=== PATIENT | female | born 1945 | race Caucasian/White ===

== ENCOUNTER 2018-05-12 12:21 | Inpatient (IN) | payer OTHER ==
[2018-05-12 15:43] VITALS: BMI 21.9
--- NOTE | 2018-05-12 19:24 | HP ---
Admission ROS [facility] - [facility] Chief Complaint: Seeking admission to Rehab Allergies/Adverse Reactions: Allergies Allergy/AdvReac Type Severity Reaction Status Date / Time No Known Allergies Allergy Verified 05/12/18 16:33 History of Present Illness: 72 years old female with a long history of alcohol dependence is seeking admission to Rehab. Patient has been in previous Rehab. She has medical history of depression, anxiety and GERD. She denies suicidal ideation at this time Exam Limitations: No Limitations - Ebola screening Have you traveled outside of the country in the last 21 days: No Have you had contact with anyone from an Ebola affected area: No Have you been sick,other than usual withdrawal symptoms: No Do you have a fever: No - Review of Systems Constitutional: No Symptoms Reported EENT: reports: Hearing Loss (left ear) Respiratory: reports: No Symptoms reported Cardiac: reports: No Symptoms Reported GI: reports: No Symptoms Reported : reports: No Symptoms Reported Musculoskeletal: reports: No Symptoms Reported, Other (left rib cage pain) Integumentary: reports: No Symptoms Reported Neuro: reports: No Symptoms reported Endocrine: reports: No Symptoms Reported Hematology: reports: No Symptoms Reported Psychiatric: reports: No Sypmtoms Reported, Orientated x3 Other Systems: Reviewed and Negative Patient History - Patient Medical History Hx Anemia: No Hx Asthma: No Hx Chronic Obstructive Pulmonary Disease (COPD): No Hx Cancer: No Hx Cardiac Disorders: No Hx Congestive Heart Failure: No Hx Hypertension: No Hx Hypercholesterolemia: No Hx Pacemaker: No HX Cerebrovascular Accident: No Hx Seizures: No Hx Dementia: No Hx Diabetes: No Hx Gastrointestinal Disorders: Yes (GERD) Hx Liver Disease: No Hx Genitourinary Disorders: No Hx Sexually Transmitted Disorders: No Hx Renal Disease (ESRD): No Hx Thyroid Disease: No Hx Human Immunodeficiency Virus (HIV): No (Negative 2018) Hx Hepatitis C: No Hx Depression: Yes (Prozac, Trazodone, Remerone) Hx Suicide Attempt: No (Denies suicidal ideation at this time) Hx Bipolar Disorder: No Hx Schizophrenia: No Other Medical History: Anxiety - Not on medication - Patient Surgical History Past Surgical History: Yes Hx Neurologic Surgery: No Hx Cataract Extraction: No Hx Cardiac Surgery: No Hx Lung Surgery: No Hx Breast Surgery: No Hx Breast Biopsy: No Hx Abdominal Surgery: No Hx Appendectomy: No Hx Cholecystectomy: No Hx Genitourinary Surgery: No Hx Section: Yes Hx Orthopedic Surgery: Yes (LEFT ANKLE FX IN 1999) Hx Hysterectomy: No Anesthesia Reaction: No - PPD History Previous Implant?: Yes Documented Results: Negative w/o proof Implanted On Prior [facility] Admission?: No PPD to be Administered?: Yes - Reproductive History Patient is a Female of Child Bearing Age (11 -55 yrs old): Yes LMP comment: Menopausal Patient : No - Smoking Cessation Smoking history: Never smoked Have you smoked in the past 12 months: No Hx Chewing Tobacco Use: No Initiated information on smoking cessation: No - Substance & Tx. History Hx Alcohol Use: Yes Hx Substance Use: No Substance Use Type: Alcohol Hx Substance Use Treatment: Yes ([facility]) - Substances Abused Alcohol Route: Oral Frequency: Daily Amount used: 1-1.5 pint of vodka Age of first use: 47 Date of Last Use: 05/09/18 Family Disease History - Family Disease History Family Disease History: Heart Disease: Father ( =- Heart attavcck), CA: Grandparent (Maternal G/mother), Sister (Throat and Melanoma) Admission Physical Exam [facility] - Vital Signs Vital Signs: Vital Signs - 24 hr 05/12/18 15:42 Temperature 96.4 F L Pulse Rate 74 Respiratory 20 Rate Blood Pressure 125/79 - Physical General Appearance: Yes: No Apparent Distress HEENTM: Yes: EOMI, Normal ENT Inspection, Normocephalic, Normal Voice, JOLENE Respiratory: Yes: Lungs Clear, Normal Breath Sounds, No Respiratory Distress Neck: Yes: Supple Breast: Yes: Breast Exam Deferred Cardiology: Yes: Regular Rhythm, Regular Rate Abdominal: Yes: Normal Bowel Sounds Genitourinary: Yes: Within Normal Limits Back: Yes: Normal Inspection Musculoskeletal: Yes: Within Normal Limits Extremities: Yes: Normal Inspection Neurological: Yes: arborist climber II-XII NML intact, Alert, Normal Mood/Affect Integumentary: Yes: Warm Lymphatic: Yes: Within Normal Limits - Diagnostic (1) Alcohol dependence Current Visit: Yes Status: Chronic (2) GERD (gastroesophageal reflux disease) Current Visit: Yes Status: Chronic (3) Anxiety Current Visit: Yes Status: Chronic (4) Depression Current Visit: Yes Status: Chronic Qualifiers: Depression Type: unspecified Qualified Code(s): F32.9 - Major depressive disorder, single episode, unspecified Cleared for Admission [facility] - Detox or Rehab [facility] Level of Care: Observation Bed Claeared for Rehab Admission: Yes [facility] Breath Alcohol Content Breath Alcohol Content: 0 Urine Pregancy Test - Result Urine Test Results: Negative- NO Line Present Urine Drug Screen - Results Drug Screen Negative: No Urine Drug Screen Results: BAR-Barbiturates, BZO-Benzodiazepines Inpatient Rehab Admission - Initial Determination Are CD services needed?: Yes Free of communicable disease: Yes Not in need of hospitalization: Yes - Rehab Admission Criteria Previous failed treatment: Yes Poor recovery environment: Yes Comorbidities: Yes Lacks judgement: No Patient is meeting Inpatient Rehab admission criteria:: Yes
[2018-05-12] MEDS ORDERED: guaiFENesin/D-METHORPHAN HB 10 ML UNIT-DOSE CUPS PO PRN (19:34)
[2018-05-12] MEDS ORDERED: MAGNESIUM CITRATE 300 ML BOTTLE PO PRN (19:34)
[2018-05-12] MEDS ORDERED: MAG HYDROX/AL HYDROX/SIMETH 30 ML UNIT-DOSE CUP PO PRN (19:34)
[2018-05-12] MEDS ORDERED: P-EPHED 60MG/TRIPROLIDI 2.5MG TABLET PO PRN (19:34)
[2018-05-12] MEDS ORDERED: MENTHOL/PHENOL 1 EACH UD MM PRN (19:34)
[2018-05-12] MEDS ORDERED: ACETAMINOPHEN 325 MG TABLET (FP) PO PRN (19:34)
[2018-05-12] MEDS ORDERED: MAGNESIUM HYDROX 2400MG/30ML ORAL SUSPENSION 30 ML CUP PO PRN (19:34)
[2018-05-12] MEDS ORDERED: LOPERAMIDE HCL 2 MG CAPSULE PO PRN (19:34)
[2018-05-12] MEDS ORDERED: MELATONIN 5 MG TABLETS PO PRN (22:00)
[2018-05-12] MEDS: THIAMINE HCL 100 MG TABLET (FP) PO SCH (22:46)
[2018-05-12 22:59] LABS: URINE APPEARANCE SLCLOUDY; URINE BILIRUBIN NEGATIVE (<2.0 mg/dL); URINE COLOR YELLOW; URINE GLUCOSE (UA) 2+ (NEGATIVE); URINE KETONE TRACE (NEGATIVE); URINE LEUK ESTERASE 3+ (NEGATIVE); URINE NITRITE NEGATIVE (NEGATIVE); URINE PROTEIN NEGATIVE (NEGATIVE); URINE UROBILINOGEN NEGATIVE mg/dL (0.2-1.0)
[2018-05-12 23:03] LABS: EPI CELLS RARE /HPF (FEW); URINE BACTERIA RARE /hpf (NONE SEEN); URINE MUCUS RARE
[2018-05-13] MEDS: PRENATAL VITAMINS W/ FOLIC ACID TABLET (FP) PO SCH (10:11)
--- NOTE | 2018-05-13 11:51 | HP ---
Psychiatrist Admission - Data Date of interview: 05/13/18 Admission source: [facility] Identifying data: This is the first qdmission to [address] [place] [address] for this 72 years old female mother of grown son, homeless,supported by [facility]. Medical History: Significant for GERD,H/O broken rib. Psychiatric History: First contact with psychiatrist was about 20 years ago to address depressed mood,anxiety.She sees psychiatrist mostly while she is on outpatient drug rehabilitation program.Patient reports couple psychiatric hospitalizations.Most recent admission was about 10 years ago to [facility] due to severe depression.No suicidal attempts reported.Patient sees psychiatrist at [facility] in [facility].Current medications: Prozac 60 mg po daily,Trazodone 100 mg po hs and Remeron 15 mg po hs. Physical/Sexual Abuse/Trauma History: denies Vital Signs: Vital Signs - 24 hr 05/12/18 05/12/18 05/13/18 15:42 20:30 00:30 Temperature 96.4 F L 97.2 F L Pulse Rate 74 84 Respiratory 20 18 18 Rate Blood Pressure 125/79 145/85 05/13/18 05/13/18 03:30 07:25 Temperature 97.3 F L Pulse Rate 61 Respiratory 18 18 Rate Blood Pressure 138/83 Allergies/Adverse Reactions: Allergies Allergy/AdvReac Type Severity Reaction Status Date / Time No Known Allergies Allergy Verified 05/12/18 16:33 Date of last physical exam: 05/12/18 Concur with the findings of this exam: Yes - Substance Abuse/Tx History Hx Alcohol Use: Yes (reports drinking since 47 yo,1-1,5 pint of vodka daily) Hx Substance Use: No Substance Use Type: Alcohol Hx Substance Use Treatment: Yes (completed termite control technician inpatient rehab about 3 weeks ago) Mental Status Exam - Mental Status Exam Alert and Oriented to: Time, Place, Person Cognitive Function: Grossly Intact Patient Appearance: Unkempt Mood: Sad, Anxious Affect: Labile Patient Behavior: Cooperative Speech Pattern: Clear Voice Loudness: Normal Thought Process: Goal Oriented Thought Disorder: Not Present Hallucinations: Denies Suicidal Ideation: Denies Homicidal Ideation: Denies Insight/Judgement: Fair Sleep: Fair Appetite: Fair Muscle strength/Tone: Normal Gait/Station: Normal Psychiatric Findings - Problem List ([place] 1, 2,3) (1) Alcohol dependence Current Visit: Yes Status: Chronic (2) GERD (gastroesophageal reflux disease) Current Visit: Yes Status: Chronic (3) Substance induced mood disorder Current Visit: Yes Status: Chronic - Initial Treatment Plan Initial Treatment Plan: Trazodone 100 mg po hs,Prozac 60 mg po daily, Remeron 15 mg po hs.Will monitor progress.
[2018-05-13] MEDS: IBUPROFEN 400 MG TABLET (FP) PO PRN ×2 (13:28→21:43)
[2018-05-13 14:23] LABS: HEMATOCRIT 35.4 % (32.4-45.2); HEMOGLOBIN 11.3 GM/dL (10.7-15.3); MCH 28.1 pg (25.7-33.7); MCHC 31.9 g/dl (32.0-36.0); MEAN CELL VOLUME 88.3 fl (80-96); MEAN PLT VOLUME 7.1 fl (7.5-11.1); PLATELET COUNT 230 K/MM3 (134-434); RDW 19.6 % (11.6-15.6); WHITE BLOOD COUNT 4.4 K/mm3 (4.0-10.0)
[2018-05-13 14:38] LABS: ALBUMIN 3.3 g/dl (3.4-5.0); ALK PHOS 67 U/L (45-117); ANION GAP 7 MMOL/L (8-16); BILIRUBIN,TOTAL 0.5 mg/dL (0.2-1); BLOOD UREA NITROGEN 12 mg/dL (7-18); CALCIUM 9.1 mg/dL (8.5-10.1); CHLORIDE 108 mmol/L (98-107); CO2 29 mmol/L (21-32); CREATININE 0.7 mg/dL (0.55-1.3); GLUCOSE,RANDOM 95 mg/dL (74-106); POTASSIUM 4.6 mmol/L (3.5-5.1); SGOT/AST 12 U/L (15-37); SGPT/ALT 16 U/L (13-61); SODIUM 144 mmol/L (136-145); TOT PROT 6.4 g/dl (6.4-8.2)
[2018-05-13] MEDS: FLUoxetine HCL 20 MG CAPSULE (FP) PO SCH (15:00)
[2018-05-13] MEDS: THIAMINE HCL 100 MG TABLET (FP) PO SCH (21:41)
[2018-05-13] MEDS: traZODone HCL 100 MG TABLET (FP) PO SCH (21:43)
[2018-05-13] MEDS: MIRTAZAPINE 15 MG TABLET (FP) PO SCH (21:43)
[2018-05-14] MEDS: FLUoxetine HCL 20 MG CAPSULE (FP) PO SCH (09:57)
[2018-05-14] MEDS: PRENATAL VITAMINS W/ FOLIC ACID TABLET (FP) PO SCH (09:58)
[2018-05-14] MEDS: PANTOPRAZOLE 40 MG TABLET (FP) PO SCH (13:37)
--- NOTE | 2018-05-14 18:11 | EKG ---
Test Reason : Blood Pressure : / mmHG Vent. Rate : 066 BPM Atrial Rate : 066 BPM P-R Int : 184 ms QRS Dur : 084 ms QT Int : 422 ms P-R-T Axes : 065 040 056 degrees QTc Int : 442 ms NORMAL SINUS RHYTHM NORMAL ECG NO PREVIOUS ECGS AVAILABLE Confirmed by CIARRA SPENCE MD ([id number]) on 05/14/2018 6:11:21 PM Referred By: Confirmed By:CIARRA SPENCE MD
[2018-05-14] MEDS: MIRTAZAPINE 15 MG TABLET (FP) PO SCH (21:33)
[2018-05-14] MEDS: traZODone HCL 100 MG TABLET (FP) PO SCH (21:33)
[2018-05-14] MEDS: THIAMINE HCL 100 MG TABLET (FP) PO SCH (21:33)
[2018-05-15] MEDS: PANTOPRAZOLE 40 MG TABLET (FP) PO SCH (10:30)
[2018-05-15] MEDS: PRENATAL VITAMINS W/ FOLIC ACID TABLET (FP) PO SCH (10:30)
[2018-05-15] MEDS: FLUoxetine HCL 20 MG CAPSULE (FP) PO SCH (10:31)
[2018-05-15] MEDS: THIAMINE HCL 100 MG TABLET (FP) PO SCH (21:29)
[2018-05-15] MEDS: MIRTAZAPINE 15 MG TABLET (FP) PO SCH (21:29)
[2018-05-15] MEDS: traZODone HCL 100 MG TABLET (FP) PO SCH (21:29)
[2018-05-16] MEDS: PANTOPRAZOLE 40 MG TABLET (FP) PO SCH (09:59)
[2018-05-16] MEDS: PRENATAL VITAMINS W/ FOLIC ACID TABLET (FP) PO SCH (10:00)
[2018-05-16] MEDS: FLUoxetine HCL 20 MG CAPSULE (FP) PO SCH (10:00)
[2018-05-16] MEDS: IBUPROFEN 400 MG TABLET (FP) PO PRN ×2 (10:00→21:43)
[2018-05-16] MEDS: MIRTAZAPINE 15 MG TABLET (FP) PO SCH (21:42)
[2018-05-16] MEDS: traZODone HCL 100 MG TABLET (FP) PO SCH (21:42)
[2018-05-16] MEDS: THIAMINE HCL 100 MG TABLET (FP) PO SCH (21:42)
[2018-05-17] MEDS: FLUoxetine HCL 20 MG CAPSULE (FP) PO SCH (10:12)
[2018-05-17] MEDS: PANTOPRAZOLE 40 MG TABLET (FP) PO SCH (10:12)
[2018-05-17] MEDS: PRENATAL VITAMINS W/ FOLIC ACID TABLET (FP) PO SCH (10:12)
[2018-05-17] MEDS: traZODone HCL 100 MG TABLET (FP) PO SCH (21:38)
[2018-05-17] MEDS: THIAMINE HCL 100 MG TABLET (FP) PO SCH (21:38)
[2018-05-17] MEDS: MIRTAZAPINE 15 MG TABLET (FP) PO SCH (21:38)
[2018-05-18] MEDS: PANTOPRAZOLE 40 MG TABLET (FP) PO SCH (10:35)
[2018-05-18] MEDS: FLUoxetine HCL 20 MG CAPSULE (FP) PO SCH (10:35)
[2018-05-18] MEDS: PRENATAL VITAMINS W/ FOLIC ACID TABLET (FP) PO SCH (10:35)
[2018-05-18] MEDS: THIAMINE HCL 100 MG TABLET (FP) PO SCH (21:41)
[2018-05-18] MEDS: MIRTAZAPINE 15 MG TABLET (FP) PO SCH (21:42)
[2018-05-18] MEDS: traZODone HCL 100 MG TABLET (FP) PO SCH (21:42)
[2018-05-19] MEDS: FLUoxetine HCL 20 MG CAPSULE (FP) PO SCH (10:50)
[2018-05-19] MEDS: PANTOPRAZOLE 40 MG TABLET (FP) PO SCH (10:51)
[2018-05-19] MEDS: PRENATAL VITAMINS W/ FOLIC ACID TABLET (FP) PO SCH (10:51)
[2018-05-19] MEDS: MIRTAZAPINE 15 MG TABLET (FP) PO SCH (21:37)
[2018-05-19] MEDS: traZODone HCL 100 MG TABLET (FP) PO SCH (21:37)
[2018-05-19] MEDS: THIAMINE HCL 100 MG TABLET (FP) PO SCH (21:37)
[2018-05-20] MEDS: FLUoxetine HCL 20 MG CAPSULE (FP) PO SCH (10:25)
[2018-05-20] MEDS: PANTOPRAZOLE 40 MG TABLET (FP) PO SCH (10:25)
[2018-05-20] MEDS: PRENATAL VITAMINS W/ FOLIC ACID TABLET (FP) PO SCH (10:25)
[2018-05-20] MEDS: traZODone HCL 100 MG TABLET (FP) PO SCH (21:48)
[2018-05-20] MEDS: THIAMINE HCL 100 MG TABLET (FP) PO SCH (21:48)
[2018-05-20] MEDS: MIRTAZAPINE 15 MG TABLET (FP) PO SCH (21:48)
[2018-05-21] MEDS: PRENATAL VITAMINS W/ FOLIC ACID TABLET (FP) PO SCH (10:19)
[2018-05-21] MEDS: FLUoxetine HCL 20 MG CAPSULE (FP) PO SCH (10:19)
[2018-05-21] MEDS: PANTOPRAZOLE 40 MG TABLET (FP) PO SCH (10:19)
[2018-05-21] MEDS: THIAMINE HCL 100 MG TABLET (FP) PO SCH (21:42)
[2018-05-21] MEDS: MIRTAZAPINE 15 MG TABLET (FP) PO SCH (21:42)
[2018-05-21] MEDS: traZODone HCL 100 MG TABLET (FP) PO SCH (21:42)
[2018-05-22] MEDS: PANTOPRAZOLE 40 MG TABLET (FP) PO SCH (10:30)
[2018-05-22] MEDS: FLUoxetine HCL 20 MG CAPSULE (FP) PO SCH (10:30)
[2018-05-22] MEDS: PRENATAL VITAMINS W/ FOLIC ACID TABLET (FP) PO SCH (10:30)
[2018-05-22] MEDS: THIAMINE HCL 100 MG TABLET (FP) PO SCH (21:37)
[2018-05-22] MEDS: MIRTAZAPINE 15 MG TABLET (FP) PO SCH (21:38)
[2018-05-22] MEDS: traZODone HCL 100 MG TABLET (FP) PO SCH (21:38)
[2018-05-23] MEDS: PRENATAL VITAMINS W/ FOLIC ACID TABLET (FP) PO SCH (11:02)
[2018-05-23] MEDS: PANTOPRAZOLE 40 MG TABLET (FP) PO SCH (11:02)
[2018-05-23] MEDS: FLUoxetine HCL 20 MG CAPSULE (FP) PO SCH (11:03)
[2018-05-23] MEDS: MIRTAZAPINE 15 MG TABLET (FP) PO SCH (21:27)
[2018-05-23] MEDS: traZODone HCL 100 MG TABLET (FP) PO SCH (21:27)
[2018-05-23] MEDS: THIAMINE HCL 100 MG TABLET (FP) PO SCH (21:27)
[2018-05-24] MEDS: FLUoxetine HCL 20 MG CAPSULE (FP) PO SCH (10:46)
[2018-05-24] MEDS: PANTOPRAZOLE 40 MG TABLET (FP) PO SCH (10:46)
[2018-05-24] MEDS: PRENATAL VITAMINS W/ FOLIC ACID TABLET (FP) PO SCH (10:46)
[2018-05-24] MEDS: traZODone HCL 100 MG TABLET (FP) PO SCH (21:54)
[2018-05-24] MEDS: THIAMINE HCL 100 MG TABLET (FP) PO SCH (21:54)
[2018-05-24] MEDS: MIRTAZAPINE 15 MG TABLET (FP) PO SCH (21:54)
[2018-05-25] MEDS: PRENATAL VITAMINS W/ FOLIC ACID TABLET (FP) PO SCH (10:16)
[2018-05-25] MEDS: PANTOPRAZOLE 40 MG TABLET (FP) PO SCH (10:17)
[2018-05-25] MEDS: FLUoxetine HCL 20 MG CAPSULE (FP) PO SCH (10:17)
[2018-05-25] MEDS: THIAMINE HCL 100 MG TABLET (FP) PO SCH (21:20)
[2018-05-25] MEDS: traZODone HCL 100 MG TABLET (FP) PO SCH (21:21)
[2018-05-25] MEDS: MIRTAZAPINE 15 MG TABLET (FP) PO SCH (21:21)
[2018-05-26] MEDS: PRENATAL VITAMINS W/ FOLIC ACID TABLET (FP) PO SCH (10:15)
[2018-05-26] MEDS: PANTOPRAZOLE 40 MG TABLET (FP) PO SCH (10:15)
[2018-05-26] MEDS: FLUoxetine HCL 20 MG CAPSULE (FP) PO SCH (10:15)
[2018-05-26] MEDS: traZODone HCL 100 MG TABLET (FP) PO SCH (21:43)
[2018-05-26] MEDS: THIAMINE HCL 100 MG TABLET (FP) PO SCH (21:43)
[2018-05-26] MEDS: MIRTAZAPINE 15 MG TABLET (FP) PO SCH (21:43)
[2018-05-27] MEDS: PRENATAL VITAMINS W/ FOLIC ACID TABLET (FP) PO SCH (10:22)
[2018-05-27] MEDS: FLUoxetine HCL 20 MG CAPSULE (FP) PO SCH (10:23)
[2018-05-27] MEDS: PANTOPRAZOLE 40 MG TABLET (FP) PO SCH (10:23)
[2018-05-27] MEDS: THIAMINE HCL 100 MG TABLET (FP) PO SCH (21:50)
[2018-05-27] MEDS: traZODone HCL 100 MG TABLET (FP) PO SCH (21:50)
[2018-05-27] MEDS: MIRTAZAPINE 15 MG TABLET (FP) PO SCH (21:50)
[2018-05-28] MEDS: PRENATAL VITAMINS W/ FOLIC ACID TABLET (FP) PO SCH (09:29)
[2018-05-28] MEDS: FLUoxetine HCL 20 MG CAPSULE (FP) PO SCH (09:29)
[2018-05-28] MEDS: PANTOPRAZOLE 40 MG TABLET (FP) PO SCH (09:29)
[2018-05-28] MEDS: traZODone HCL 100 MG TABLET (FP) PO SCH (21:09)
[2018-05-28] MEDS: MIRTAZAPINE 15 MG TABLET (FP) PO SCH (21:09)
[2018-05-28] MEDS: THIAMINE HCL 100 MG TABLET (FP) PO SCH (21:09)
[2018-05-29] MEDS: PRENATAL VITAMINS W/ FOLIC ACID TABLET (FP) PO SCH (10:03)
[2018-05-29] MEDS: PANTOPRAZOLE 40 MG TABLET (FP) PO SCH (10:03)
[2018-05-29] MEDS: FLUoxetine HCL 20 MG CAPSULE (FP) PO SCH (10:04)
[2018-05-29] MEDS: THIAMINE HCL 100 MG TABLET (FP) PO SCH (21:24)
[2018-05-29] MEDS: traZODone HCL 100 MG TABLET (FP) PO SCH (21:24)
[2018-05-29] MEDS: MIRTAZAPINE 15 MG TABLET (FP) PO SCH (21:24)
[2018-05-30] MEDS: PANTOPRAZOLE 40 MG TABLET (FP) PO SCH (10:27)
[2018-05-30] MEDS: PRENATAL VITAMINS W/ FOLIC ACID TABLET (FP) PO SCH (10:27)
[2018-05-30] MEDS: FLUoxetine HCL 20 MG CAPSULE (FP) PO SCH (10:28)
[2018-05-30] MEDS: THIAMINE HCL 100 MG TABLET (FP) PO SCH (21:52)
[2018-05-30] MEDS: traZODone HCL 100 MG TABLET (FP) PO SCH (21:52)
[2018-05-30] MEDS: MIRTAZAPINE 15 MG TABLET (FP) PO SCH (21:52)
[2018-05-31] MEDS: PRENATAL VITAMINS W/ FOLIC ACID TABLET (FP) PO SCH (10:55)
[2018-05-31] MEDS: FLUoxetine HCL 20 MG CAPSULE (FP) PO SCH (10:56)
[2018-05-31] MEDS: PANTOPRAZOLE 40 MG TABLET (FP) PO SCH (10:56)
[2018-05-31] MEDS: traZODone HCL 100 MG TABLET (FP) PO SCH (21:44)
[2018-05-31] MEDS: THIAMINE HCL 100 MG TABLET (FP) PO SCH (21:44)
[2018-05-31] MEDS: MIRTAZAPINE 15 MG TABLET (FP) PO SCH (21:45)
[2018-06-01] MEDS: FLUoxetine HCL 20 MG CAPSULE (FP) PO SCH (10:36)
[2018-06-01] MEDS: PRENATAL VITAMINS W/ FOLIC ACID TABLET (FP) PO SCH (10:36)
[2018-06-01] MEDS: PANTOPRAZOLE 40 MG TABLET (FP) PO SCH (10:36)
[2018-06-01] MEDS: COLLOIDAL OATMEAL 1 BAR EACH TP PRN (14:02)
[2018-06-01] MEDS: IBUPROFEN 400 MG TABLET (FP) PO PRN (19:01)
[2018-06-01] MEDS: MIRTAZAPINE 15 MG TABLET (FP) PO SCH (21:56)
[2018-06-01] MEDS: traZODone HCL 100 MG TABLET (FP) PO SCH (21:56)
[2018-06-01] MEDS: THIAMINE HCL 100 MG TABLET (FP) PO SCH (21:56)
[2018-06-02] MEDS: FLUoxetine HCL 20 MG CAPSULE (FP) PO SCH (10:30)
[2018-06-02] MEDS: PRENATAL VITAMINS W/ FOLIC ACID TABLET (FP) PO SCH (10:31)
[2018-06-02] MEDS: PANTOPRAZOLE 40 MG TABLET (FP) PO SCH (10:31)
--- NOTE | 2018-06-02 11:38 | PN ---
[facility] Progress Note Note: PATIENT PRESENTS WITH C/O RASH AND ITCHING TO BILATERAL ARMS AND LOWER BACK. PATIENT STATES SHE HAS HAD SYMPTOMS FREQUENTLY AT HOME AND TREATED WITH HYDROCORTISONE. PE: MILD REDNESS TO LOWER BACK AREA AND LEFT FOREARM. NO OPEN AREAS OR SWELLING. Vital Signs Temperature 97.6 F 06/02/18 06:00 Pulse Rate 61 06/02/18 06:00 Respiratory Rate 18 06/02/18 06:00 Blood Pressure 121/67 06/02/18 06:00 O2 Sat by Pulse Oximetry (%) A/P; CONTACT DERMATITIS WILL ORDER HYDROCORTISONE CREAM 0.5% TID AVEENO SOAP CONTINUE TO MONITOR CLINICALLY
[2018-06-02] MEDS: HYDROCORTISONE 0.5% TOPICAL OINTMENT TUBE TP SCH ×2 (13:53→21:45)
[2018-06-02] MEDS: COLLOIDAL OATMEAL 1 BAR EACH TP PRN (13:53)
[2018-06-02] MEDS: traZODone HCL 100 MG TABLET (FP) PO SCH (21:49)
[2018-06-02] MEDS: MIRTAZAPINE 15 MG TABLET (FP) PO SCH (21:49)
[2018-06-02] MEDS: THIAMINE HCL 100 MG TABLET (FP) PO SCH (21:49)
[2018-06-03] MEDS ORDERED: PT OWN MED DRAWER 7, Y5N ONE ×3 (05:50→14:41)
[2018-06-03] MEDS: HYDROCORTISONE 0.5% TOPICAL OINTMENT TUBE TP SCH ×3 (07:33→21:56)
[2018-06-03] MEDS: PRENATAL VITAMINS W/ FOLIC ACID TABLET (FP) PO SCH (10:34)
[2018-06-03] MEDS: FLUoxetine HCL 20 MG CAPSULE (FP) PO SCH (10:34)
[2018-06-03] MEDS: PANTOPRAZOLE 40 MG TABLET (FP) PO SCH (10:34)
[2018-06-03] MEDS: IBUPROFEN 400 MG TABLET (FP) PO PRN (21:36)
[2018-06-03] MEDS: THIAMINE HCL 100 MG TABLET (FP) PO SCH (21:36)
[2018-06-03] MEDS: traZODone HCL 100 MG TABLET (FP) PO SCH (21:36)
[2018-06-03] MEDS: MIRTAZAPINE 15 MG TABLET (FP) PO SCH (21:36)
[2018-06-04] MEDS: HYDROCORTISONE 0.5% TOPICAL OINTMENT TUBE TP SCH ×3 (07:31→21:33)
[2018-06-04] MEDS: PRENATAL VITAMINS W/ FOLIC ACID TABLET (FP) PO SCH (10:31)
[2018-06-04] MEDS: FLUoxetine HCL 20 MG CAPSULE (FP) PO SCH (10:32)
[2018-06-04] MEDS: PANTOPRAZOLE 40 MG TABLET (FP) PO SCH (10:32)
[2018-06-04] MEDS ORDERED: PT OWN MED DRAWER 7, Y5N ONE ×2 (15:28→21:33)
[2018-06-04] MEDS: MIRTAZAPINE 15 MG TABLET (FP) PO SCH (21:32)
[2018-06-04] MEDS: traZODone HCL 100 MG TABLET (FP) PO SCH (21:32)
[2018-06-04] MEDS: THIAMINE HCL 100 MG TABLET (FP) PO SCH (21:32)
[2018-06-05] MEDS: HYDROCORTISONE 0.5% TOPICAL OINTMENT TUBE TP SCH ×3 (06:43→21:35)
[2018-06-05] MEDS ORDERED: PT OWN MED DRAWER 7, Y5N ONE (08:47)
[2018-06-05] MEDS: FLUoxetine HCL 20 MG CAPSULE (FP) PO SCH (10:17)
[2018-06-05] MEDS: PANTOPRAZOLE 40 MG TABLET (FP) PO SCH (10:17)
[2018-06-05] MEDS: PRENATAL VITAMINS W/ FOLIC ACID TABLET (FP) PO SCH (10:17)
[2018-06-05] MEDS: MIRTAZAPINE 15 MG TABLET (FP) PO SCH (21:34)
[2018-06-05] MEDS: traZODone HCL 100 MG TABLET (FP) PO SCH (21:34)
[2018-06-05] MEDS: THIAMINE HCL 100 MG TABLET (FP) PO SCH (21:34)
[2018-06-06] MEDS: HYDROCORTISONE 0.5% TOPICAL OINTMENT TUBE TP SCH ×3 (06:44→21:29)
[2018-06-06] MEDS: PRENATAL VITAMINS W/ FOLIC ACID TABLET (FP) PO SCH (10:33)
[2018-06-06] MEDS: FLUoxetine HCL 20 MG CAPSULE (FP) PO SCH (10:33)
[2018-06-06] MEDS: PANTOPRAZOLE 40 MG TABLET (FP) PO SCH (10:34)
[2018-06-06] MEDS: MIRTAZAPINE 15 MG TABLET (FP) PO SCH (21:28)
[2018-06-06] MEDS: THIAMINE HCL 100 MG TABLET (FP) PO SCH (21:28)
[2018-06-06] MEDS: traZODone HCL 100 MG TABLET (FP) PO SCH (21:28)
[2018-06-07] MEDS: HYDROCORTISONE 0.5% TOPICAL OINTMENT TUBE TP SCH ×3 (06:49→21:39)
[2018-06-07] MEDS: FLUoxetine HCL 20 MG CAPSULE (FP) PO SCH (10:37)
[2018-06-07] MEDS: PRENATAL VITAMINS W/ FOLIC ACID TABLET (FP) PO SCH (10:37)
[2018-06-07] MEDS: PANTOPRAZOLE 40 MG TABLET (FP) PO SCH (10:37)
[2018-06-07] MEDS ORDERED: PT OWN MED DRAWER 7, Y5N ONE (15:02)
[2018-06-07] MEDS: traZODone HCL 100 MG TABLET (FP) PO SCH (21:39)
[2018-06-07] MEDS: THIAMINE HCL 100 MG TABLET (FP) PO SCH (21:39)
[2018-06-07] MEDS: MIRTAZAPINE 15 MG TABLET (FP) PO SCH (21:39)
[2018-06-08] MEDS: HYDROCORTISONE 0.5% TOPICAL OINTMENT TUBE TP SCH ×3 (07:31→21:29)
[2018-06-08] MEDS: PANTOPRAZOLE 40 MG TABLET (FP) PO SCH (10:15)
[2018-06-08] MEDS: PRENATAL VITAMINS W/ FOLIC ACID TABLET (FP) PO SCH (10:15)
[2018-06-08] MEDS: FLUoxetine HCL 20 MG CAPSULE (FP) PO SCH (10:15)
[2018-06-08] MEDS: traZODone HCL 100 MG TABLET (FP) PO SCH (21:28)
[2018-06-08] MEDS: THIAMINE HCL 100 MG TABLET (FP) PO SCH (21:28)
[2018-06-08] MEDS: MIRTAZAPINE 15 MG TABLET (FP) PO SCH (21:29)
[2018-06-09 06:39] VITALS: BP 126/80; PULSE 77; TEMP 97.4
[2018-06-09] MEDS: HYDROCORTISONE 0.5% TOPICAL OINTMENT TUBE TP SCH ×3 (06:49→21:37)
[2018-06-09] MEDS ORDERED: PT OWN MED DRAWER 7, Y5N ONE (07:18)
[2018-06-09] MEDS: PRENATAL VITAMINS W/ FOLIC ACID TABLET (FP) PO SCH (10:13)
[2018-06-09] MEDS: PANTOPRAZOLE 40 MG TABLET (FP) PO SCH (10:13)
[2018-06-09] MEDS: FLUoxetine HCL 20 MG CAPSULE (FP) PO SCH (10:14)
[2018-06-09] MEDS: THIAMINE HCL 100 MG TABLET (FP) PO SCH (21:36)
[2018-06-09] MEDS: traZODone HCL 100 MG TABLET (FP) PO SCH (21:37)
[2018-06-09] MEDS: MIRTAZAPINE 15 MG TABLET (FP) PO SCH (21:37)
[2018-06-10] MEDS: HYDROCORTISONE 0.5% TOPICAL OINTMENT TUBE TP SCH (06:57)
--- NOTE | 2018-06-10 09:24 | PN ---
[facility] Progress Note Note: Patient completed this program today.She has met her treatment goals and will continue to address her issues on outpatient basis.patient reports finding current medications help to cope with depression,anxiety.Scripts provided for 30 days supply.Patient is stable for discharge today.
== END 2018-06-10 07:25 | disposition home or self-care (01) | DRG 895 ==
LOC: YASAS 12:21 → Y3E 17:28
PROVIDERS: ADMIT Psychiatry & Neurology Psychiatry; ATTEND Psychiatry & Neurology Psychiatry
PROC: HZ42ZZZ Group Counseling for Substance Abuse Treatment, Cognitive-Behavioral (ICD-10-PCS; principal; 2018-05-12)
DX: F10.20 Alcohol dependence, uncomplicated (principal); F19.24 Other psychoactive substance dependence with psychoactive substance-induced mood disorder; F41.9 Anxiety disorder, unspecified; F32.9 Major depressive disorder, single episode, unspecified; K21.9 Gastro-esophageal reflux disease without esophagitis; L25.9 Unspecified contact dermatitis, unspecified cause; Z59.0 Homelessness
CPT/HCPCS: 36415; 80053; 81003; 81015; 85027; 86593; 93005; 93010

== ENCOUNTER 2019-03-16 08:45 | Inpatient (IN) | payer OTHER ==
[2019-03-16 09:23] VITALS: BMI 23.8
--- NOTE | 2019-03-16 11:10 | HP ---
CIWA Score Nausea/Vomitin Muscle Tremors: 3 Anxiety: 2 Agitation: 2 Paroxysmal Sweats: 1-Minimal Palms Moist Orientation: 0-Oriented Tacttile Disturbances: 1-Very Mild Itch/Numbness Auditory Disturbances: 0-None Visual Disturbances: 1-Very Mild Sensitivity Headache: 2-Mild CIWA-Ar Total Score: 14 - Admission Criteria [facility] Guidelines: Admission for Medically Managed Detox: Requires at least one of the followin. CIWA greater than 12 2. Seizures within the past 24 hours 3. Delirium tremens within the past 24 hours 4. Hallucinations within the past 24 hours 5. Acute intervention needed for co occurring medical disorder 6. Acute intervention needed for co occurring psychiatric disorder 7. Severe withdrawal that cannot be handled at a lower level of care (continued vomiting, continued diarrhea, abnormal vital signs) requiring intravenous medication and/or fluids 8. Admission ROS [facility] - HPI Chief Complaint: i need help to stop drinking alcohol Allergies/Adverse Reactions: Allergies Allergy/AdvReac Type Severity Reaction Status Date / Time No Known Allergies Allergy Verified 03/16/19 09:11 History of Present Illness: this 73 years old female with alcohol dependence,seeking help to stop drinking alcohol,withdrawal symptom, last treatment rehab [facility] 05/12/18 to 06/10/18 denied seizure syncope alcohol related longest sobriety 1 year plan for rehab after detox history of gerd,depression Exam Limitations: No Limitations - Ebola screening Have you traveled outside of the country in the last 21 days: No (N) Have you had contact with anyone from an Ebola affected area: No Do you have a fever: No - Review of Systems Constitutional: Loss of Appetite, Malaise, Night Sweats, Changes in sleep, Weakness EENT: reports: Tearing, Nose Congestion Respiratory: reports: No Symptoms reported Cardiac: reports: No Symptoms Reported GI: reports: Nausea, Poor Appetite, Abdominal cramping : reports: No Symptoms Reported Musculoskeletal: reports: Back Pain, Muscle Pain Integumentary: reports: Dryness Neuro: reports: Headache, Tremors Endocrine: reports: No Symptoms Reported Hematology: reports: No Symptoms Reported Psychiatric: reports: No Sypmtoms Reported, Judgement Intact, Mood/Affect Appropiate, Orientated x3 Other Systems: Reviewed and Negative Patient History - Patient Medical History Hx Anemia: No Hx Asthma: No Hx Chronic Obstructive Pulmonary Disease (COPD): No Hx Cancer: No Hx Cardiac Disorders: No Hx Congestive Heart Failure: No Hx Hypertension: No Hx Hypercholesterolemia: No Hx Pacemaker: No HX Cerebrovascular Accident: No Hx Seizures: No Hx Dementia: No Hx Diabetes: No Hx Gastrointestinal Disorders: Yes (GERD) Hx Liver Disease: No Hx Genitourinary Disorders: No Hx Sexually Transmitted Disorders: No Hx Renal Disease (ESRD): No Hx Thyroid Disease: No Hx Human Immunodeficiency Virus (HIV): No (Negative 2018) Hx Hepatitis C: No Hx Depression: Yes (Prozac, Trazodone, Remerone) Hx Suicide Attempt: No (Denies suicidal ideation at this time) Hx Bipolar Disorder: No Hx Schizophrenia: No Other Medical History: no suicidal,no homicidal - Patient Surgical History Past Surgical History: Yes Hx Neurologic Surgery: No Hx Cataract Extraction: No Hx Cardiac Surgery: No Hx Lung Surgery: No Hx Breast Surgery: No Hx Breast Biopsy: No Hx Abdominal Surgery: No Hx Appendectomy: No Hx Cholecystectomy: No Hx Genitourinary Surgery: No Hx Section: Yes Hx Orthopedic Surgery: Yes (LEFT ANKLE FX IN 1999) Hx Hysterectomy: No Anesthesia Reaction: No - PPD History Previous Implant?: Yes Documented Results: Negative w/o proof Implanted On Prior R Admission?: Yes Date: 05/14/18 PPD to be Administered?: No - Smoking Cessation Smoking history: Never smoked Have you smoked in the past 12 months: No Hx Chewing Tobacco Use: No - Substance & Tx. History Hx Alcohol Use: Yes Hx Substance Use: No Substance Use Type: Alcohol Hx Substance Use Treatment: Yes ([facility] 05/12/18 to 06/10/18) - Substances abused Alcohol Substance route: Oral Frequency: Daily Amount used: 2 PINTS OF VODKA Age of first use: 22 Date of last use: 03/15/19 Family Disease History - Family Disease History Family Disease History: Heart Disease: Father ( =- Heart attack), CA: Grandparent (Maternal G/mother), Sister (Throat and Melanoma) Admission Physical Exam S - Vital Signs Vital Signs: Vital Signs - 24 hr 03/16/19 03/16/19 09:11 10:01 Temperature 98.9 F 98.9 F Pulse Rate 86 86 Respiratory 20 20 Rate Blood Pressure 146/85 146/85 - Physical General Appearance: Yes: Moderate Distress, Tremorous, Irritable, Sweating, Anxious HEENTM: Yes: Normal ENT Inspection, JOLENE, Pharynx Normal Respiratory: Yes: Lungs Clear, Normal Breath Sounds, No Respiratory Distress Neck: Yes: Within Normal Limits, Supple, Trachea in good position Breast: Yes: Breast Exam Deferred Cardiology: Yes: Within Normal Limits, Regular Rhythm, Regular Rate, S1, S2 Abdominal: Yes: Within Normal Limits, Normal Bowel Sounds, Non Tender, Flat, Soft Genitourinary: Yes: Within Normal Limits Back: Yes: Muscle Spasm Musculoskeletal: Yes: Back pain, Muscle Pain Extremities: Yes: Normal Range of Motion, Tremors Neurological: Yes: network coordinator II-XII NML intact, Fully Oriented, Alert, Motor Strength 5/5 Integumentary: Yes: Dry Lymphatic: Yes: Within Normal Limits - Diagnostic (1) Alcohol dependence with uncomplicated withdrawal Current Visit: Yes Status: Acute (2) GERD (gastroesophageal reflux disease) Current Visit: No Status: Chronic (3) Syncope Current Visit: Yes Status: Acute (4) Dehydration Current Visit: Yes Status: Acute Cleared for Admission S - Detox or Rehab [facility] Level of Care: Medically Managed (patient requsted ativan detox) Breathalyzer - Breathalyzer Breathalyzer: 0.003 Urine Drug Screen - Test Device Lot number: [id number] Expiration date: 12/23/20 - Control Is test valid?: Yes - Results Drug screen NEGATIVE: No Urine drug screen results: BZO-Benzodiazepines Inpatient Rehab Admission - Rehab Decision to Admit Inpatient rehab admission?: No
[2019-03-16] MEDS ORDERED: hydrOXYzine PAMOATE 25 MG CAPSULE (FP) PO PRN (11:23)
[2019-03-16] MEDS ORDERED: LORazepam 1 MG TABLET PO PRN (11:23)
[2019-03-16] MEDS ORDERED: METHOCARBAMOL 500 MG TABLET PO PRN (11:23)
[2019-03-16] MEDS ORDERED: MAG HYDROX/AL HYDROX/SIMETH 30 ML UNIT-DOSE CUP PO PRN (11:23)
[2019-03-16] MEDS ORDERED: MAGNESIUM CITRATE 300 ML BOTTLE PO PRN (11:23)
[2019-03-16] MEDS ORDERED: IBUPROFEN 400 MG TABLET (FP) PO PRN (11:23)
[2019-03-16] MEDS ORDERED: MENTHOL/PHENOL 1 EACH UD MM PRN (11:23)
[2019-03-16] MEDS ORDERED: BISMUTH SUBSALICYLATE 262 MG/15 ML BTL PO PRN (11:23)
[2019-03-16] MEDS ORDERED: MAGNESIUM HYDROX 2400MG/30ML ORAL SUSPENSION 30 ML CUP PO PRN (11:23)
[2019-03-16] MEDS ORDERED: MELATONIN 5 MG TABLETS PO PRN (11:23)
[2019-03-16] MEDS ORDERED: ACETAMINOPHEN 325 MG TABLET (FP) PO PRN ×2 (11:23)
--- NOTE | 2019-03-16 14:54 | CONSULT ---
[facility] Psychiatric Consult - Data Date of interview: 03/16/19 Admission source: [facility] Identifying data: Patient is a 73 year old female, mother of one, homeless, but is supported by [facility] and her job as a lower school spanish teacher. This is one of multiple admissions for patient. Patient admitted to for alcohol dependence. Substance Abuse History: - Smoking Cessation. Smoking history: Never smoked. Have you smoked in the past 12 months: No. Hx Chewing Tobacco Use: No. - Substance & Tx. History. Hx Alcohol Use: Yes. Hx Substance Use: No. Substance Use Type: Alcohol. Hx Substance Use Treatment: Yes ([facility] 05/12/18 to 06/10/18). - Substances abused. Alcohol. Substance route: Oral. Frequency : Daily. Amount used: 2 PINTS OF VODKA. Age of first use: 22. Date of last use: 03/15/19 Medical History: GERD Psychiatric History: Patient's first psychiatric contact was approximately 20 years ago to address her history of depression. She reports history of one psychiatric hospitalization at [facility] for depression. Patient was at [facility] in December of 2018 and was prescribed prozac 40mg + Trazodone 100mg although states that she has not taken medications in two weeks. She reports h/ o seeing multiple psychiatrist when admitted to rehab settings. She denies h/o suicide attempt. At present she reports stable mood. Physical/Sexual Abuse/Trauma History: denies. Mental Status Exam - Mental Status Exam Alert and Oriented to: Time, Place, Person Cognitive Function: Good Patient Appearance: Well Groomed Mood: Euthymic Affect: Mood Congruent Patient Behavior: Cooperative Speech Pattern: Appropriate Voice Loudness: Normal Thought Process: Goal Oriented Thought Disorder: Not Present Hallucinations: Denies Suicidal Ideation: Denies Homicidal Ideation: Denies Insight/Judgement: Poor Sleep: Poorly Appetite: Poor Muscle strength/Tone: Normal Gait/Station: Normal Psychiatric Findings - Problem List ([place] 1, 2,3) (1) Alcohol-induced sleep disorder Status: Acute (2) Alcohol dependence with uncomplicated withdrawal Status: Acute (3) Alcohol-induced mood disorder Status: Chronic - Initial Treatment Plan Initial Treatment Plan: Psychoeducation provided. Detoxification in progress. Will order Trazodone 50mg HS. Patient refuses to accept prozac. Benefits and side effects discussed. Verbal consent given.
[2019-03-16 15:10] LABS: HEMATOCRIT 35.1 % (32.4-45.2); HEMOGLOBIN 12.1 GM/dL (10.7-15.3); MCH 29.7 pg (25.7-33.7); MCHC 34.4 g/dl (32.0-36.0); MEAN CELL VOLUME 86.2 fl (80-96); MEAN PLT VOLUME 6.9 fl (7.5-11.1); PLATELET COUNT 352 K/MM3 (134-434); RBC 4.07 M/mm3 (3.60-5.2); RDW 15.7 % (11.6-15.6); WHITE BLOOD COUNT 5.7 K/mm3 (4.0-10.0)
[2019-03-16 15:12] LABS: ALBUMIN 4.2 g/dl (3.4-5.0); BILIRUBIN,TOTAL 0.8 mg/dL (0.2-1); BLOOD UREA NITROGEN 10.9 mg/dL (7-18); CALCIUM 9.8 mg/dL (8.5-10.1); CREATININE 0.7 mg/dL (0.55-1.3); POTASSIUM 4.6 mmol/L (3.5-5.1); TOT PROT 7.6 g/dl (6.4-8.2)
--- NOTE | 2019-03-16 17:00 | EKG ---
Test Reason : Blood Pressure : / mmHG Vent. Rate : 076 BPM Atrial Rate : 076 BPM P-R Int : 170 ms QRS Dur : 092 ms QT Int : 414 ms P-R-T Axes : 058 034 044 degrees QTc Int : 465 ms NORMAL SINUS RHYTHM NORMAL ECG WHEN COMPARED WITH ECG OF 12-MAY-2018 19:51, NO SIGNIFICANT CHANGE WAS FOUND Confirmed by CIARRA SPENCE MD ([id number]) on 03/16/2019 4:59:47 PM Referred By: Confirmed By:CIARRA SPENCE MD
[2019-03-16] MEDS: LORazepam 2 MG TABLET PO SCH ×2 (17:16→22:09)
[2019-03-16] MEDS: THIAMINE HCL 100 MG TABLET (FP) PO SCH (22:09)
[2019-03-16] MEDS: traZODone HCL 50 MG TABLET (FP) PO SCH (22:09)
[2019-03-17] MEDS: LORazepam 2 MG TABLET PO SCH ×4 (06:00→22:35)
[2019-03-17] MEDS: PANTOPRAZOLE 40 MG TABLET (FP) PO SCH (10:35)
[2019-03-17] MEDS: PRENATAL VITAMINS W/ FOLIC ACID TABLET (FP) PO SCH (10:35)
--- NOTE | 2019-03-17 16:53 | PN ---
S CIWA - CIWA Score Nausea/Vomitin-No Nausea/No Vomiting Muscle Tremors: 4-Moderate,w/Arms Extend Anxiety: 4-Mod. Anxious/Guarded Agitation: 0-Normal Activity Paroxysmal Sweats: 3 Orientation: 0-Oriented Tacttile Disturbances: 0-None Auditory Disturbances: 0-None Visual Disturbances: 2-Mild Sensitivity Headache: 0-None Present CIWA-Ar Total Score: 13 [facility] Progress Note (SOAP) Subjective: Anxious, Sweating, Tremors, Fatigue. Objective: PATIENT A & O X 3. IN NO ACUTE DISTRESS. 03/17/19 16:51 Vital Signs Temperature 97.3 F L 03/17/19 13:10 Pulse Rate 8 L 03/17/19 13:10 Respiratory Rate 18 03/17/19 13:10 Blood Pressure 124/68 03/17/19 13:10 O2 Sat by Pulse Oximetry (%) Laboratory Tests 03/16/19 03/16/19 03/16/19 11:30 11:30 11:30 WBC 5.7 RBC 4.07 Hgb 12.1 Hct 35.1 MCV 86.2 MCH 29.7 MCHC 34.4 RDW 15.7 H D Plt Count 352 D MPV 6.9 L Sodium 142 Potassium 4.6 Chloride 102 Carbon Dioxide 26 Anion Gap 14 BUN 10.9 Creatinine 0.7 Est GFR (CKD-EPI)AfAm 101.03 Est GFR (CKD-EPI)NonAf 87.17 Random Glucose 88 Calcium 9.8 Total Bilirubin 0.8 AST 17 ALT 16 Alkaline Phosphatase 65 Total Protein 7.6 Albumin 4.2 RPR Titer Nonreactive LABS NOTED. RESULTS OF DETOX ADMISSION QFT /TB TEST PENDING. 03/17/19 16:52 Assessment: 03/17/19 16:51 WITHDRAWAL SYMPTOMS. Plan: CONTINUE DETOX. INCREASE DAILY PO WATER INTAKE.
[2019-03-17] MEDS: THIAMINE HCL 100 MG TABLET (FP) PO SCH (22:35)
[2019-03-17] MEDS: traZODone HCL 50 MG TABLET (FP) PO SCH (22:35)
[2019-03-18] MEDS: LORazepam 1 MG TABLET PO SCH ×4 (05:44→22:23)
[2019-03-18] MEDS: PRENATAL VITAMINS W/ FOLIC ACID TABLET (FP) PO SCH (10:35)
[2019-03-18] MEDS: PANTOPRAZOLE 40 MG TABLET (FP) PO SCH (10:35)
--- NOTE | 2019-03-18 15:52 | PN ---
S CIWA - CIWA Score Nausea/Vomitin-No Nausea/No Vomiting Muscle Tremors: 2 Anxiety: 4-Mod. Anxious/Guarded Agitation: 2 Paroxysmal Sweats: 2 Orientation: 0-Oriented Tacttile Disturbances: 0-None Auditory Disturbances: 0-None Visual Disturbances: 1-Very Mild Sensitivity Headache: 0-None Present CIWA-Ar Total Score: 11 S Progress Note (SOAP) Subjective: Sweating, Fatigue, Tremors, Anxious. Objective: PATIENT A & O X 3, OBSERVED AMBULATING ON UNIT UNASSISTED. IN NO ACUTE DISTRESS. 03/18/19 15:51 Vital Signs Temperature 97.2 F L 03/18/19 13:15 Pulse Rate 82 03/18/19 13:15 Respiratory Rate 18 03/18/19 13:15 Blood Pressure 124/77 03/18/19 13:15 O2 Sat by Pulse Oximetry (%) Laboratory Tests 03/16/19 03/16/19 03/16/19 11:30 11:30 11:30 WBC 5.7 RBC 4.07 Hgb 12.1 Hct 35.1 MCV 86.2 MCH 29.7 MCHC 34.4 RDW 15.7 H D Plt Count 352 D MPV 6.9 L Sodium 142 Potassium 4.6 Chloride 102 Carbon Dioxide 26 Anion Gap 14 BUN 10.9 Creatinine 0.7 Est GFR (CKD-EPI)AfAm 101.03 Est GFR (CKD-EPI)NonAf 87.17 Random Glucose 88 Calcium 9.8 Total Bilirubin 0.8 AST 17 ALT 16 Alkaline Phosphatase 65 Total Protein 7.6 Albumin 4.2 RPR Titer Nonreactive LABS NOTED. RESULTS OF DETOX ADMISSION QFT /TB TEST PENDING. 03/18/19 15:51 Assessment: 03/18/19 15:52 WITHDRAWAL SYMPTOMS. Plan: CONTINUE DETOX. INCREASE DAILY PO WATER INTAKE.
[2019-03-18] MEDS: THIAMINE HCL 100 MG TABLET (FP) PO SCH (22:23)
[2019-03-18] MEDS: traZODone HCL 50 MG TABLET (FP) PO SCH (22:42)
[2019-03-19] MEDS ORDERED: LORazepam 0.5 MG TABLET PO PRN
[2019-03-19] MEDS: LORazepam 0.5 MG TABLET PO SCH ×4 (06:52→22:25)
[2019-03-19] MEDS: PRENATAL VITAMINS W/ FOLIC ACID TABLET (FP) PO SCH (10:33)
[2019-03-19] MEDS: PANTOPRAZOLE 40 MG TABLET (FP) PO SCH (10:33)
--- NOTE | 2019-03-19 14:31 | PN ---
[facility] CIWA - CIWA Score Nausea/Vomitin-No Nausea/No Vomiting Muscle Tremors: 3 Anxiety: 2 Agitation: 1-Slight > Activity Paroxysmal Sweats: 2 Orientation: 0-Oriented Tacttile Disturbances: 0-None Auditory Disturbances: 0-None Visual Disturbances: 0-None Headache: 0-None Present CIWA-Ar Total Score: 8 S Progress Note (SOAP) Subjective: 73 years old female admitted on 03/16/19 for acute alcohol withdrawal sx management doing well wtih ativan detox regimen well rested tolerate food well ambulating on hallway hesitate to discuss aftercare with staff community support meeting and group for sober recovery Objective: 03/19/19 14:32 Vital Signs Temperature 96.7 F L 03/19/19 13:16 Pulse Rate 84 03/19/19 13:16 Respiratory Rate 18 03/19/19 13:16 Blood Pressure 108/67 03/19/19 13:16 O2 Sat by Pulse Oximetry (%) Laboratory Last Values WBC 5.7 K/mm3 (4.0-10.0) 03/16/19 11:30 RBC 4.07 M/mm3 (3.60-5.2) 03/16/19 11:30 Hgb 12.1 GM/dL (10.7-15.3) 03/16/19 11:30 Hct 35.1 % (32.4-45.2) 03/16/19 11:30 MCV 86.2 fl (80-96) 03/16/19 11:30 MCH 29.7 pg (25.7-33.7) 03/16/19 11:30 MCHC 34.4 g/dl (32.0-36.0) 03/16/19 11:30 RDW 15.7 % (11.6-15.6) H D 03/16/19 11:30 Plt Count 352 K/MM3 (134-434) D 03/16/19 11:30 MPV 6.9 fl (7.5-11.1) L 03/16/19 11:30 Sodium 142 mmol/L (136-145) 03/16/19 11:30 Potassium 4.6 mmol/L (3.5-5.1) 03/16/19 11:30 Chloride 102 mmol/L (98-107) 03/16/19 11:30 Carbon Dioxide 26 mmol/L (21-32) 03/16/19 11:30 Anion Gap 14 MMOL/L (8-16) 03/16/19 11:30 BUN 10.9 mg/dL (7-18) 03/16/19 11:30 Creatinine 0.7 mg/dL (0.55-1.3) 03/16/19 11:30 Est GFR (CKD-EPI)AfAm 101.03 03/16/19 11:30 Est GFR (CKD-EPI)NonAf 87.17 03/16/19 11:30 Random Glucose 88 mg/dL (74-106) 03/16/19 11:30 Calcium 9.8 mg/dL (8.5-10.1) 03/16/19 11:30 Total Bilirubin 0.8 mg/dL (0.2-1) 03/16/19 11:30 AST 17 U/L (15-37) 03/16/19 11:30 ALT 16 U/L (13-61) 03/16/19 11:30 Alkaline Phosphatase 65 U/L (45-117) 03/16/19 11:30 Total Protein 7.6 g/dl (6.4-8.2) 03/16/19 11:30 Albumin 4.2 g/dl (3.4-5.0) 03/16/19 11:30 RPR Titer Nonreactive (NONREACTIVE) 03/16/19 11:30 lab noted Assessment: 03/19/19 14:33 alcohol withdrawal sx Plan: continue ativan detox regimen
[2019-03-19] MEDS: traZODone HCL 50 MG TABLET (FP) PO SCH (22:25)
[2019-03-19] MEDS: THIAMINE HCL 100 MG TABLET (FP) PO SCH (22:26)
[2019-03-20] MEDS ORDERED: LORazepam 0.5 MG TABLET PO ONE (05:00)
[2019-03-20 09:30] VITALS: BP 114/67; PULSE 63; TEMP 97.2
[2019-03-20] MEDS: PRENATAL VITAMINS W/ FOLIC ACID TABLET (FP) PO SCH (10:36)
[2019-03-20] MEDS: PANTOPRAZOLE 40 MG TABLET (FP) PO SCH (10:36)
--- NOTE | 2019-03-20 14:57 | DS ---
[facility] Detox Discharge Summary Admission Date: 03/16/19 Discharge Date: 03/20/19 - History Present History: Alcohol Dependence Additional Comments: 73 years old female admitted on 03/16/19 for alcohol withdrawal sx management doing well with ativan detox regimen no complication throughout the detox stay seen by psychiatrist refused antidepressant alert oriented x 3 speech clearly coherently abdomen soft none tender skin warm dry extremities full range of motion denies dizziness no trouble urination - Physical Exam Results Vital Signs: Vital Signs Temperature 97.2 F L 03/20/19 09:30 Pulse Rate 63 03/20/19 09:30 Respiratory Rate 20 03/20/19 09:30 Blood Pressure 114/67 03/20/19 09:30 O2 Sat by Pulse Oximetry (%) Pertinent Admission Physical Exam Findings: alcohol withdrawal sx Laboratory Last Values WBC 5.7 K/mm3 (4.0-10.0) 03/16/19 11:30 RBC 4.07 M/mm3 (3.60-5.2) 03/16/19 11:30 Hgb 12.1 GM/dL (10.7-15.3) 03/16/19 11:30 Hct 35.1 % (32.4-45.2) 03/16/19 11:30 MCV 86.2 fl (80-96) 03/16/19 11:30 MCH 29.7 pg (25.7-33.7) 03/16/19 11:30 MCHC 34.4 g/dl (32.0-36.0) 03/16/19 11:30 RDW 15.7 % (11.6-15.6) H D 03/16/19 11:30 Plt Count 352 K/MM3 (134-434) D 03/16/19 11:30 MPV 6.9 fl (7.5-11.1) L 03/16/19 11:30 Sodium 142 mmol/L (136-145) 03/16/19 11:30 Potassium 4.6 mmol/L (3.5-5.1) 03/16/19 11:30 Chloride 102 mmol/L (98-107) 03/16/19 11:30 Carbon Dioxide 26 mmol/L (21-32) 03/16/19 11:30 Anion Gap 14 MMOL/L (8-16) 03/16/19 11:30 BUN 10.9 mg/dL (7-18) 03/16/19 11:30 Creatinine 0.7 mg/dL (0.55-1.3) 03/16/19 11:30 Est GFR (CKD-EPI)AfAm 101.03 03/16/19 11:30 Est GFR (CKD-EPI)NonAf 87.17 03/16/19 11:30 Random Glucose 88 mg/dL (74-106) 03/16/19 11:30 Calcium 9.8 mg/dL (8.5-10.1) 03/16/19 11:30 Total Bilirubin 0.8 mg/dL (0.2-1) 03/16/19 11:30 AST 17 U/L (15-37) 03/16/19 11:30 ALT 16 U/L (13-61) 03/16/19 11:30 Alkaline Phosphatase 65 U/L (45-117) 03/16/19 11:30 Total Protein 7.6 g/dl (6.4-8.2) 03/16/19 11:30 Albumin 4.2 g/dl (3.4-5.0) 03/16/19 11:30 RPR Titer Nonreactive (NONREACTIVE) 03/16/19 11:30 lab noted - Treatment Hospital Course: Detox Protocol Followed, Detoxed Safely, Responded well, Discharged Condition Good, Rehab Referral Accepted Patient has Accepted a Rehab Referral to: community support approach - Medication Discharge Medications: Ambulatory Orders Fluoxetine HCl [Prozac -] 40 mg PO DAILY 05/12/18 Mirtazapine [Remeron -] 15 mg PO HS 05/12/18 Pantoprazole Sodium 40 mg PO DAILY #30 tablet. 06/08/18 traZODone HCL [Desyrel -] 100 mg PO HS #20 tablet 06/09/18 - Diagnosis (1) Alcohol dependence with uncomplicated withdrawal Status: Acute (2) GERD (gastroesophageal reflux disease) Status: Chronic Qualifiers: Esophagitis presence: without esophagitis Qualified Code(s): K21.9 - Gastro -esophageal reflux disease without esophagitis (3) Substance induced mood disorder Status: Suspected - AMA Did Patient Leave Against Medical Advice: No
== END 2019-03-20 12:30 | disposition home or self-care (01) | DRG 897 ==
LOC: YASAS 08:45 → Y3N 11:32
PROVIDERS: ADMIT Surgery; ATTEND Surgery
PROC: HZ2ZZZZ Detoxification Services for Substance Abuse Treatment (ICD-10-PCS; principal; 2019-03-16)
DX: F10.230 Alcohol dependence with withdrawal, uncomplicated (principal); F10.24 Alcohol dependence with alcohol-induced mood disorder; F10.282 Alcohol dependence with alcohol-induced sleep disorder; F19.24 Other psychoactive substance dependence with psychoactive substance-induced mood disorder; F32.9 Major depressive disorder, single episode, unspecified; E86.0 Dehydration; K21.9 Gastro-esophageal reflux disease without esophagitis; R55 Syncope and collapse; Z59.0 Homelessness
CPT/HCPCS: 36415; 80053; 85027; 86480; 86593; 93005; 93010

== ENCOUNTER 2021-02-14 15:15 | Inpatient (IN) | payer OTHER ==
[2021-02-14 17:33] VITALS: BP 110/50; PULSE 89; TEMP 98.1; BMI 20.1
[2021-02-14] MEDS ORDERED: MAGNESIUM HYDROX 2400MG/30ML ORAL SUSPENSION 30 ML CUP PO PRN (18:15)
[2021-02-14] MEDS ORDERED: LORazepam 1 MG TABLET PO PRN (18:15)
[2021-02-14] MEDS ORDERED: IBUPROFEN 400 MG TABLET (FP) PO PRN (18:15)
[2021-02-14] MEDS ORDERED: ONDANSETRON *ODT* 4 MG TABLET SL PRN (18:15)
[2021-02-14] MEDS ORDERED: BISMUTH SUBSALICYLATE 524 MG/30 ML PO PRN (18:15)
[2021-02-14] MEDS ORDERED: MAG HYDROX/AL HYDROX/SIMETH 30 ML UNIT-DOSE CUP PO PRN (18:15)
[2021-02-14] MEDS ORDERED: ACETAMINOPHEN 325 MG TABLET (FP) PO PRN ×2 (18:15)
[2021-02-14] MEDS ORDERED: MAGNESIUM CITRATE 300 ML BOTTLE PO PRN (18:15)
[2021-02-14] MEDS ORDERED: MENTHOL/PHENOL 1 EACH UD MM PRN (18:15)
[2021-02-14] MEDS ORDERED: NICOTINE POLACRILEX 2 MG GUM BUC PRN (18:15)
[2021-02-14] MEDS ORDERED: METHOCARBAMOL 500 MG TABLET PO PRN (18:15)
[2021-02-14] MEDS ORDERED: THIAMINE HCL 100 MG TABLET (FP) PO SCH (22:00)
[2021-02-14] MEDS ORDERED: hydrOXYzine PAMOATE 25 MG CAPSULE (FP) PO SCH (22:00)
[2021-02-14] MEDS ORDERED: MELATONIN 5 MG TABLETS PO SCH (22:00)
[2021-02-14] MEDS ORDERED: LORazepam 2 MG TABLET PO SCH (23:00)
[2021-02-15] MEDS ORDERED: PRENATAL VITAMINS W/ FOLIC ACID TABLET (FP) PO SCH (10:00)
[2021-02-16] MEDS ORDERED: LORazepam 1 MG TABLET PO SCH (05:00)
[2021-02-17] MEDS ORDERED: LORazepam 0.5 MG TABLET PO PRN
[2021-02-17] MEDS ORDERED: LORazepam 0.5 MG TABLET PO SCH (05:00)
[2021-02-18] MEDS ORDERED: LORazepam 0.5 MG TABLET PO ONE (05:00)
== END 2021-02-14 20:34 | disposition left against medical advice (07) | DRG 894 ==
LOC: YASAS 15:15 → Y3N 18:22
PROVIDERS: ADMIT Allergy & Immunology; ATTEND Allergy & Immunology
PROC: HZ2ZZZZ Detoxification Services for Substance Abuse Treatment (ICD-10-PCS; principal; 2021-02-14)
DX: F10.230 Alcohol dependence with withdrawal, uncomplicated (principal); F10.24 Alcohol dependence with alcohol-induced mood disorder; F10.282 Alcohol dependence with alcohol-induced sleep disorder; F41.9 Anxiety disorder, unspecified; F32.9 Major depressive disorder, single episode, unspecified; K21.9 Gastro-esophageal reflux disease without esophagitis; Z59.0 Homelessness
CPT/HCPCS: 93005; 93010; C9803; U0003; U0005

== ENCOUNTER 2021-04-15 11:03 | Inpatient (IN) | payer OTHER ==
[~2021-04-15 11:03] MED LIST: diazePAM 5 MG TABLET PO SCH
[2021-04-15] MEDS ORDERED: MAGNESIUM HYDROX 2400MG/30ML ORAL SUSPENSION 30 ML CUP PO PRN (13:29)
[2021-04-15] MEDS ORDERED: diazePAM 5 MG TABLET PO PRN ×2 (13:29→13:51)
[2021-04-15] MEDS ORDERED: METHOCARBAMOL 500 MG TABLET PO PRN (13:29)
[2021-04-15] MEDS ORDERED: MAG HYDROX/AL HYDROX/SIMETH 30 ML UNIT-DOSE CUP PO PRN (13:29)
[2021-04-15] MEDS ORDERED: ACETAMINOPHEN 325 MG TABLET (FP) PO PRN ×2 (13:29)
[2021-04-15] MEDS ORDERED: MAGNESIUM CITRATE 300 ML BOTTLE PO PRN (13:29)
[2021-04-15] MEDS ORDERED: ONDANSETRON *ODT* 4 MG TABLET SL PRN (13:29)
[2021-04-15] MEDS ORDERED: MENTHOL/PHENOL 1 EACH UD MM PRN (13:29)
[2021-04-15] MEDS ORDERED: IBUPROFEN 400 MG TABLET (FP) PO PRN (13:29)
[2021-04-15] MEDS ORDERED: BISMUTH SUBSALICYLATE 524 MG/30 ML PO PRN (13:29)
[2021-04-15 13:41] VITALS: BMI 22.3
[2021-04-15] MEDS ORDERED: hydrOXYzine PAMOATE 25 MG CAPSULE (FP) PO SCH (14:00)
[2021-04-15] MEDS ORDERED: hydrOXYzine PAMOATE 25 MG CAPSULE (FP) PO ONE (14:41)
[2021-04-15] MEDS ORDERED: diazePAM 5 MG TABLET ONE (14:41)
[2021-04-15 15:15] LABS: HEMATOCRIT 26.3 % (32.4-45.2); HEMOGLOBIN 8.6 GM/dL (10.7-15.3); MCH 27.5 pg (25.7-33.7); MCHC 32.6 g/dl (32.0-36.0); MEAN CELL VOLUME 84.2 fl (80-96); MEAN PLT VOLUME 6.5 fl (7.5-11.1); PLATELET COUNT 274 10^3/uL (134-434); RBC 3.12 M/mm3 (3.60-5.2); RDW 21.6 % (11.6-15.6)
[2021-04-15 15:26] LABS: ALBUMIN 3.3 g/dl (3.4-5.0)
[2021-04-15 15:27] LABS: BLOOD UREA NITROGEN 12.7 mg/dL (7-18)
[2021-04-15 15:28] LABS: BILIRUBIN,TOTAL 0.3 mg/dL (0.2-1); CALCIUM 8.2 mg/dL (8.5-10.1); TOT PROT 7.2 g/dl (6.4-8.2)
[2021-04-15 15:30] LABS: CREATININE 0.4 mg/dL (0.55-1.3)
[2021-04-15 16:05] VITALS: BP 144/90; PULSE 83; TEMP 96.6
[2021-04-15] MEDS ORDERED: THIAMINE HCL 100 MG TABLET (FP) PO SCH (22:00)
[2021-04-15] MEDS ORDERED: MELATONIN 5 MG TABLETS PO SCH (22:00)
[2021-04-17] MEDS ORDERED: diazePAM 5 MG TABLET PO SCH (06:00)
[2021-04-18] MEDS ORDERED: diazePAM 5 MG TABLET PO SCH (06:00)
[2021-04-19] MEDS ORDERED: diazePAM 5 MG TABLET PO ONE (06:00)
== END 2021-04-15 17:20 | disposition left against medical advice (07) | DRG 894 ==
LOC: YASAS 11:03 → Y3N 15:30
PROVIDERS: ADMIT Allergy & Immunology; ATTEND Allergy & Immunology
PROC: HZ2ZZZZ Detoxification Services for Substance Abuse Treatment (ICD-10-PCS; principal; 2021-04-15)
DX: F10.230 Alcohol dependence with withdrawal, uncomplicated (principal); F10.282 Alcohol dependence with alcohol-induced sleep disorder; F41.9 Anxiety disorder, unspecified; F32.9 Major depressive disorder, single episode, unspecified; K21.9 Gastro-esophageal reflux disease without esophagitis; R60.0 Localized edema; Z59.0 Homelessness
CPT/HCPCS: 36415; 80053; 85027; 86780; C9803; U0003; U0005

== ENCOUNTER 2021-06-14 15:22 | Inpatient (IN) | payer OTHER ==
[2021-06-14] MEDS ORDERED: MAG HYDROX/AL HYDROX/SIMETH 30 ML UNIT-DOSE CUP PO PRN (20:37)
[2021-06-14] MEDS ORDERED: NICOTINE 10 MG CARTRIDGE (INHALER) IH PRN (20:37)
[2021-06-14] MEDS ORDERED: MENTHOL/PHENOL 1 EACH UD MM PRN (20:37)
[2021-06-14] MEDS ORDERED: BISMUTH SUBSALICYLATE 524 MG/30 ML PO PRN (20:37)
[2021-06-14] MEDS ORDERED: MAGNESIUM CITRATE 300 ML BOTTLE PO PRN (20:37)
[2021-06-14] MEDS ORDERED: ACETAMINOPHEN 325 MG TABLET (FP) PO PRN (20:37)
[2021-06-14] MEDS ORDERED: diazePAM 5 MG TABLET PO PRN ×2 (20:37→20:51)
[2021-06-14] MEDS ORDERED: diazePAM 5 MG TABLET ONE (21:01)
[2021-06-14] MEDS: diazePAM 5 MG TABLET PO PRN (21:09)
[2021-06-14 21:57] VITALS: BMI 23.6
[2021-06-14] MEDS: MELATONIN 5 MG TABLETS PO SCH (23:01)
[2021-06-14] MEDS: hydrOXYzine PAMOATE 25 MG CAPSULE (FP) PO SCH (23:01)
[2021-06-14] MEDS: THIAMINE HCL 100 MG TABLET (FP) PO SCH (23:01)
[2021-06-14] MEDS: GABAPENTIN 300 MG CAPSULE PO SCH (23:03)
[2021-06-14] MEDS: diazePAM 5 MG TABLET PO SCH (23:05)
[2021-06-14] MEDS: ONDANSETRON *ODT* 4 MG TABLET SL PRN (23:33)
[2021-06-15] MEDS: METHOCARBAMOL 500 MG TABLET PO PRN ×2 (01:57→10:20)
[2021-06-15] MEDS: ACETAMINOPHEN 325 MG TABLET (FP) PO PRN ×2 (01:57→15:42)
[2021-06-15] MEDS: diazePAM 5 MG TABLET PO PRN ×2 (03:49→15:41)
[2021-06-15] MEDS: IBUPROFEN 400 MG TABLET (FP) PO PRN ×3 (03:51→22:47)
[2021-06-15] MEDS: diazePAM 5 MG TABLET PO SCH ×4 (05:38→22:48)
[2021-06-15] MEDS: hydrOXYzine PAMOATE 25 MG CAPSULE (FP) PO SCH ×5 (05:39→22:48)
[2021-06-15] MEDS: GABAPENTIN 300 MG CAPSULE PO SCH ×2 (10:17→22:48)
[2021-06-15] MEDS: PANTOPRAZOLE 40 MG TABLET PO SCH (10:18)
[2021-06-15] MEDS: PRENATAL VITAMINS W/ FOLIC ACID TABLET (FP) PO SCH (10:18)
[2021-06-15] MEDS: ONDANSETRON *ODT* 4 MG TABLET SL PRN (10:21)
[2021-06-15] MEDS: traZODone HCL 50 MG TABLET (FP) PO SCH (22:47)
[2021-06-15] MEDS: THIAMINE HCL 100 MG TABLET (FP) PO SCH (22:47)
[2021-06-15] MEDS: MELATONIN 5 MG TABLETS PO SCH (22:48)
[2021-06-16] MEDS: diazePAM 5 MG TABLET PO PRN (01:35)
[2021-06-16] MEDS: METHOCARBAMOL 500 MG TABLET PO PRN ×2 (01:35→17:53)
[2021-06-16] MEDS: ACETAMINOPHEN 325 MG TABLET (FP) PO PRN ×2 (06:17→13:47)
[2021-06-16] MEDS: hydrOXYzine PAMOATE 25 MG CAPSULE (FP) PO SCH ×2 (06:18→10:18)
[2021-06-16] MEDS: diazePAM 5 MG TABLET PO SCH ×3 (06:19→22:34)
[2021-06-16] MEDS: PANTOPRAZOLE 40 MG TABLET PO SCH (10:18)
[2021-06-16] MEDS: GABAPENTIN 300 MG CAPSULE PO SCH ×2 (10:18→22:33)
[2021-06-16] MEDS: PRENATAL VITAMINS W/ FOLIC ACID TABLET (FP) PO SCH (10:18)
[2021-06-16 13:37] LABS: HEMATOCRIT 25.6 % (32.4-45.2); HEMOGLOBIN 8.1 GM/dL (10.7-15.3); MCH 25.8 pg (25.7-33.7); MCHC 31.8 g/dl (32.0-36.0); MEAN CELL VOLUME 81.1 fl (80-96); MEAN PLT VOLUME 7.1 fl (7.5-11.1); PLATELET COUNT 119 10^3/uL (134-434); RBC 3.16 M/mm3 (3.60-5.2); RDW 24.1 % (11.6-15.6); WHITE BLOOD COUNT 2.9 K/mm3 (4.0-10.0)
[2021-06-16 13:50] LABS: BILIRUBIN,TOTAL 0.4 mg/dL (0.2-1)
[2021-06-16 13:52] LABS: ALBUMIN 2.9 g/dl (3.4-5.0); BLOOD UREA NITROGEN 16.1 mg/dL (7-18)
[2021-06-16 13:53] LABS: CALCIUM 8.4 mg/dL (8.5-10.1)
[2021-06-16 13:55] LABS: CREATININE 0.6 mg/dL (0.55-1.3)
[2021-06-16] MEDS ORDERED: hydrOXYzine PAMOATE 25 MG CAPSULE (FP) PO PRN (16:00)
[2021-06-16] MEDS: THIAMINE HCL 100 MG TABLET (FP) PO SCH (22:33)
[2021-06-16] MEDS: MELATONIN 5 MG TABLETS PO SCH (22:33)
[2021-06-16] MEDS: traZODone HCL 50 MG TABLET (FP) PO SCH (22:33)
[2021-06-16] MEDS: MAGNESIUM HYDROX 2400MG/30ML ORAL SUSPENSION 30 ML CUP PO PRN (22:35)
[2021-06-16] MEDS: IBUPROFEN 400 MG TABLET (FP) PO PRN (22:36)
[2021-06-17] MEDS: diazePAM 5 MG TABLET PO SCH ×2 (06:38→18:29)
[2021-06-17] MEDS: MAGNESIUM HYDROX 2400MG/30ML ORAL SUSPENSION 30 ML CUP PO PRN (06:38)
[2021-06-17] MEDS: ACETAMINOPHEN 325 MG TABLET (FP) PO PRN (06:39)
[2021-06-17] MEDS: PANTOPRAZOLE 40 MG TABLET PO SCH (10:42)
[2021-06-17] MEDS: PRENATAL VITAMINS W/ FOLIC ACID TABLET (FP) PO SCH (10:42)
[2021-06-17] MEDS: GABAPENTIN 300 MG CAPSULE PO SCH ×2 (10:42→22:35)
[2021-06-17] MEDS ORDERED: IBUPROFEN 600 MG TABLET (FP) PO PRN (12:46)
[2021-06-17] MEDS ORDERED: ACETAMINOPHEN 325 MG TABLET (FP) PO PRN (13:16)
[2021-06-17] MEDS: LIDOCAINE 5% TOPICAL PATCH TP SCH (13:40)
[2021-06-17 14:50] LABS: BASO % 0.8 % (0-2.0); EOS % 4.4 % (0-4.5); HEMATOCRIT 26.9 % (32.4-45.2); HEMOGLOBIN 8.6 GM/dL (10.7-15.3); MEAN CELL VOLUME 81.2 fl (80-96); MEAN PLT VOLUME 7.1 fl (7.5-11.1); MONO % 17.4 % (3.8-10.2); NEUT % 54.4 % (42.8-82.8); PLATELET COUNT 131 10^3/uL (134-434); RBC 3.31 M/mm3 (3.60-5.2); RDW 23.9 % (11.6-15.6); WHITE BLOOD COUNT 2.7 K/mm3 (4.0-10.0)
[2021-06-17 15:23] LABS: ANISOCYTOSIS 2+; MACROCYTOSIS 0; PLATELET ESTIMATE DECREASED
[2021-06-17] MEDS ORDERED: LIDOCAINE PATCH REMOVAL MC SCH (22:00)
[2021-06-17] MEDS: traZODone HCL 50 MG TABLET (FP) PO SCH (22:35)
[2021-06-17] MEDS: MELATONIN 5 MG TABLETS PO SCH (22:35)
[2021-06-17] MEDS: THIAMINE HCL 100 MG TABLET (FP) PO SCH (22:35)
[2021-06-17] MEDS: METHOCARBAMOL 500 MG TABLET PO PRN (22:37)
[2021-06-18] MEDS ORDERED: diazePAM 5 MG TABLET PO ONE (06:00)
[2021-06-18] MEDS: PANTOPRAZOLE 40 MG TABLET PO SCH (10:26)
[2021-06-18] MEDS: PRENATAL VITAMINS W/ FOLIC ACID TABLET (FP) PO SCH (10:26)
[2021-06-18] MEDS: LIDOCAINE 5% TOPICAL PATCH TP SCH (10:26)
[2021-06-18] MEDS: GABAPENTIN 300 MG CAPSULE PO SCH (10:26)
[2021-06-18 12:52] VITALS: BP 105/69; PULSE 87; TEMP 99
[2021-06-18] MEDS: ONDANSETRON *ODT* 4 MG TABLET SL PRN (14:11)
== END 2021-06-18 14:36 | disposition home or self-care (01) | DRG 897 ==
LOC: YASAS 15:22 → Y3N 21:35
PROVIDERS: ADMIT Allergy & Immunology; ATTEND Allergy & Immunology
PROC: HZ2ZZZZ Detoxification Services for Substance Abuse Treatment (ICD-10-PCS; principal; 2021-06-14)
DX: F10.230 Alcohol dependence with withdrawal, uncomplicated (principal); D61.818 Other pancytopenia; F10.282 Alcohol dependence with alcohol-induced sleep disorder; F10.24 Alcohol dependence with alcohol-induced mood disorder; F41.9 Anxiety disorder, unspecified; F32.A Depression, unspecified; K21.9 Gastro-esophageal reflux disease without esophagitis; Z99.89 Dependence on other enabling machines and devices; Z59.01 Sheltered homelessness
CPT/HCPCS: 36415; 71101-TC-LT-FY; 80053; 85025; 85027; 86780; C9803; Q0162; U0003; U0005

== ENCOUNTER 2021-09-16 20:48 | Inpatient (IN) | payer OTHER ==
[2021-09-16 21:35] VITALS: BMI 24.3
[2021-09-16] MEDS ORDERED: ACETAMINOPHEN 325 MG TABLET (FP) PO PRN ×2 (21:50)
[2021-09-16] MEDS ORDERED: BISMUTH SUBSALICYLATE 524 MG/30 ML PO PRN (21:50)
[2021-09-16] MEDS ORDERED: MENTHOL/PHENOL 1 EACH UD MM PRN (21:50)
[2021-09-16] MEDS ORDERED: MELATONIN 5 MG TABLETS PO PRN (21:50)
[2021-09-16] MEDS ORDERED: MAG HYDROX/AL HYDROX/SIMETH 30 ML UNIT-DOSE CUP PO PRN (21:50)
[2021-09-16] MEDS ORDERED: MAGNESIUM CITRATE 300 ML BOTTLE PO PRN (21:50)
[2021-09-16] MEDS ORDERED: MAGNESIUM HYDROX 2400MG/30ML ORAL SUSPENSION 30 ML CUP PO PRN (21:50)
[2021-09-16] MEDS ORDERED: LOPERAMIDE HCL 2 MG CAPSULE PO PRN (21:50)
[2021-09-16] MEDS ORDERED: IBUPROFEN 400 MG TABLET (FP) PO PRN (21:50)
[2021-09-16] MEDS ORDERED: chlordiazePOXIDE HCL 25 MG CAPSULE PO PRN (21:53)
[2021-09-16] MEDS ORDERED: PERMETHRIN 5% TOPICAL CREAM 60 GM TUBE TP ONE (21:54)
[2021-09-16] MEDS ORDERED: chlordiazePOXIDE HCL 25 MG CAPSULE ONE (21:56)
[2021-09-16] MEDS ORDERED: chlordiazePOXIDE HCL 10 MG CAPSULE PO ONE (21:58)
[2021-09-16] MEDS ORDERED: TRIMETHOBENZAMIDE HCL 200MG/2ML INJ IM ONE (22:20)
[2021-09-16] MEDS ORDERED: PERMETHRIN 5% TOPICAL CREAM 60 GM TUBE ONE (23:51)
[2021-09-17] MEDS: AZITHROMYCIN 250 MG TABLET PO ONE ×2 (00:29→01:11)
[2021-09-17] MEDS ORDERED: chlordiazePOXIDE HCL 25 MG CAPSULE ONE (00:31)
[2021-09-17] MEDS: chlordiazePOXIDE HCL 25 MG CAPSULE PO SCH ×5 (00:32→22:46)
[2021-09-17] MEDS: PANTOPRAZOLE 40 MG TABLET PO SCH ×2 (00:45→11:06)
[2021-09-17] MEDS: THIAMINE HCL 100 MG TABLET (FP) PO SCH ×2 (00:46→22:45)
[2021-09-17] MEDS: ONDANSETRON *ODT* 4 MG TABLET SL PRN ×2 (01:55→14:33)
[2021-09-17] MEDS: PRENATAL VITAMINS W/ FOLIC ACID TABLET (FP) PO SCH ×2 (11:09→11:58)
[2021-09-17 12:43] LABS: HEMATOCRIT 30.3 % (32.4-45.2); HEMOGLOBIN 9.2 GM/dL (10.7-15.3); MCH 24.1 pg (25.7-33.7); MCHC 30.5 g/dl (32.0-36.0); MEAN PLT VOLUME 8.2 fl (7.5-11.1); PLATELET COUNT 157 10^3/uL (134-434); RBC 3.84 M/mm3 (3.60-5.2); RDW 24.5 % (11.6-15.6); WHITE BLOOD COUNT 3.5 K/mm3 (4.0-10.0)
[2021-09-17 12:50] LABS: CALCIUM 9.1 mg/dL (8.5-10.1)
[2021-09-17 12:51] LABS: ALBUMIN 3.5 g/dl (3.4-5.0)
[2021-09-17 12:54] LABS: CREATININE 0.8 mg/dL (0.55-1.3); TOT PROT 6.8 g/dl (6.4-8.2)
[2021-09-17 12:55] LABS: BILIRUBIN,TOTAL 0.9 mg/dL (0.2-1)
[2021-09-17] MEDS: AZITHROMYCIN 250 MG TABLET PO SCH (14:33)
[2021-09-17] MEDS ORDERED: TRIMETHOBENZAMIDE HCL 200MG/2ML INJ IM ONE ×2 (18:03→18:22)
[2021-09-17] MEDS ORDERED: SODIUM CHLORIDE 0.9% 500 ML INFUS.BAG IV ONE (18:03)
[2021-09-17] MEDS ORDERED: DICYCLOMINE HCL 10 MG CAPSULE PO ONE (18:24)
[2021-09-17] MEDS: hydrOXYzine PAMOATE 25 MG CAPSULE (FP) PO PRN (22:45)
[2021-09-17] MEDS: traZODone HCL 50 MG TABLET (FP) PO SCH (22:46)
[2021-09-18] MEDS: chlordiazePOXIDE HCL 25 MG CAPSULE PO SCH ×4 (07:04→22:58)
[2021-09-18] MEDS: AZITHROMYCIN 250 MG TABLET PO SCH (10:53)
[2021-09-18] MEDS: PRENATAL VITAMINS W/ FOLIC ACID TABLET (FP) PO SCH (10:53)
[2021-09-18] MEDS: hydrOXYzine PAMOATE 25 MG CAPSULE (FP) PO PRN ×3 (10:53→22:58)
[2021-09-18] MEDS: METHOCARBAMOL 500 MG TABLET PO PRN ×2 (10:53→18:15)
[2021-09-18] MEDS: PANTOPRAZOLE 40 MG TABLET PO SCH (10:53)
[2021-09-18] MEDS: THIAMINE HCL 100 MG TABLET (FP) PO SCH (22:58)
[2021-09-18] MEDS: traZODone HCL 50 MG TABLET (FP) PO SCH (22:58)
[2021-09-19] MEDS ORDERED: chlordiazePOXIDE HCL 10 MG CAPSULE PO PRN
[2021-09-19] MEDS: chlordiazePOXIDE HCL 10 MG CAPSULE PO SCH ×4 (06:09→23:29)
[2021-09-19] MEDS: PANTOPRAZOLE 40 MG TABLET PO SCH (11:11)
[2021-09-19] MEDS: PRENATAL VITAMINS W/ FOLIC ACID TABLET (FP) PO SCH (11:11)
[2021-09-19] MEDS: AZITHROMYCIN 250 MG TABLET PO SCH (11:11)
[2021-09-19] MEDS: FERROUS SO4 325 MG TABLET (FP) PO SCH (14:14)
[2021-09-19] MEDS: hydrOXYzine PAMOATE 25 MG CAPSULE (FP) PO PRN ×2 (18:26→23:29)
[2021-09-19] MEDS: traZODone HCL 50 MG TABLET (FP) PO SCH (23:29)
[2021-09-19] MEDS: THIAMINE HCL 100 MG TABLET (FP) PO SCH (23:29)
[2021-09-20] MEDS: chlordiazePOXIDE HCL 10 MG CAPSULE PO SCH ×2 (07:06→18:15)
[2021-09-20] MEDS: PRENATAL VITAMINS W/ FOLIC ACID TABLET (FP) PO SCH (09:34)
[2021-09-20] MEDS: AZITHROMYCIN 250 MG TABLET PO SCH (09:34)
[2021-09-20] MEDS: PANTOPRAZOLE 40 MG TABLET PO SCH (09:34)
[2021-09-20] MEDS: METHOCARBAMOL 500 MG TABLET PO PRN (09:34)
[2021-09-20] MEDS: FERROUS SO4 325 MG TABLET (FP) PO SCH (09:34)
[2021-09-20] MEDS: THIAMINE HCL 100 MG TABLET (FP) PO SCH (23:04)
[2021-09-20] MEDS: traZODone HCL 50 MG TABLET (FP) PO SCH (23:04)
[2021-09-21] MEDS ORDERED: chlordiazePOXIDE HCL 10 MG CAPSULE PO ONE (05:00)
[2021-09-21] MEDS: PRENATAL VITAMINS W/ FOLIC ACID TABLET (FP) PO SCH (10:47)
[2021-09-21] MEDS: PANTOPRAZOLE 40 MG TABLET PO SCH (10:48)
[2021-09-21] MEDS: FERROUS SO4 325 MG TABLET (FP) PO SCH ×3 (10:49→18:52)
[2021-09-21 17:09] VITALS: BP 98/61; PULSE 115; TEMP 98
== END 2021-09-21 19:11 | disposition home or self-care (01) | DRG 896 ==
LOC: YASAS 20:48 → Y6N 09-17
PROVIDERS: ADMIT Allergy & Immunology; ATTEND Allergy & Immunology
PROC: HZ2ZZZZ Detoxification Services for Substance Abuse Treatment (ICD-10-PCS; principal; 2021-09-17)
DX: F10.230 Alcohol dependence with withdrawal, uncomplicated (principal); U07.1 COVID-19; F10.282 Alcohol dependence with alcohol-induced sleep disorder; F10.24 Alcohol dependence with alcohol-induced mood disorder; F41.9 Anxiety disorder, unspecified; F32.A Depression, unspecified; D50.9 Iron deficiency anemia, unspecified; D72.819 Decreased white blood cell count, unspecified; K21.9 Gastro-esophageal reflux disease without esophagitis; B86 Scabies; Z59.01 Sheltered homelessness
CPT/HCPCS: 36415; 80053; 82607; 82746; 83540; 83550; 85027; 86780; 87811; C9803; Q0162; U0003; U0005

== ENCOUNTER 2021-12-20 18:14 | Inpatient (IN) | payer OTHER ==
[2021-12-20 19:22] VITALS: BMI 25.0
[2021-12-20] MEDS ORDERED: IBUPROFEN 400 MG TABLET (FP) PO PRN ×2 (20:54→21:30)
[2021-12-20] MEDS ORDERED: guaiFENesin 200 MG/10 ML 10 ML UNIT-DOSE CUPS PO PRN ×2 (20:54→21:30)
[2021-12-20] MEDS ORDERED: LOPERAMIDE HCL 2 MG CAPSULE PO PRN (20:54)
[2021-12-20] MEDS ORDERED: P-EPHED 60MG/TRIPROLIDI 2.5MG TABLET PO PRN (20:54)
[2021-12-20] MEDS ORDERED: MAGNESIUM CITRATE 300 ML BOTTLE PO PRN ×2 (20:54→21:30)
[2021-12-20] MEDS ORDERED: MAG HYDROX/AL HYDROX/SIMETH 30 ML UNIT-DOSE CUP PO PRN ×2 (20:54→21:30)
[2021-12-20] MEDS ORDERED: MAGNESIUM HYDROX 2400MG/30ML ORAL SUSPENSION 30 ML CUP PO PRN ×2 (20:54→21:30)
[2021-12-20] MEDS ORDERED: ACETAMINOPHEN 325 MG TABLET (FP) PO PRN ×3 (20:54→21:30)
[2021-12-20] MEDS ORDERED: DICYCLOMINE HCL 10 MG CAPSULE PO PRN (21:30)
[2021-12-20] MEDS ORDERED: BISMUTH SUBSALICYLATE 524 MG/30 ML PO PRN (21:30)
[2021-12-20] MEDS ORDERED: BENZOCAINE/MENTHOL (CHLORASEPTIC ) LOZENGE MM PRN (21:30)
[2021-12-20] MEDS ORDERED: HYDROCORTISONE 1% TOPICAL CREAM 30 GM TUBE TP PRN (21:43)
[2021-12-20] MEDS ORDERED: THIAMINE HCL 100 MG TABLET (FP) PO SCH (22:00)
[2021-12-20] MEDS ORDERED: MELATONIN 5 MG TABLETS PO SCH (22:00)
[2021-12-20] MEDS: LORazepam 1 MG TABLET PO SCH (23:41)
[2021-12-20] MEDS: THIAMINE HCL 100 MG TABLET (FP) PO SCH (23:41)
[2021-12-21] MEDS: LORazepam 1 MG TABLET PO SCH ×3 (06:14→18:01)
[2021-12-21] MEDS: ONDANSETRON *ODT* 4 MG TABLET SL PRN ×3 (07:17→22:33)
[2021-12-21] MEDS ORDERED: PRENATAL VITAMINS W/ FOLIC ACID TABLET (FP) PO SCH (10:00)
[2021-12-21] MEDS: PANTOPRAZOLE 20 MG TABLET PO SCH (10:25)
[2021-12-21] MEDS: PRENATAL VITAMINS W/ FOLIC ACID TABLET (FP) PO SCH (10:26)
[2021-12-21 15:44] LABS: PH,URINE >= 9.0 (5.0-8.0); URINE APPEARANCE CLOUDY; URINE BILIRUBIN NEGATIVE (NEGATIVE); URINE COLOR DK YELLOW; URINE GLUCOSE (UA) NEGATIVE (NEGATIVE); URINE KETONE TRACE (NEGATIVE); URINE LEUK ESTERASE NEGATIVE (NEGATIVE); URINE NITRITE NEGATIVE (NEGATIVE); URINE PROTEIN TRACE (NEGATIVE)
[2021-12-21] MEDS ORDERED: TRIMETHOBENZAMIDE HCL 200MG/2ML INJ IM ONE (18:54)
[2021-12-21] MEDS: THIAMINE HCL 100 MG TABLET (FP) PO SCH (22:30)
[2021-12-21] MEDS: LORazepam 0.5 MG TABLET PO SCH (22:35)
[2021-12-22] MEDS: LORazepam 0.5 MG TABLET PO SCH ×3 (05:14→17:53)
[2021-12-22] MEDS: PRENATAL VITAMINS W/ FOLIC ACID TABLET (FP) PO SCH (10:39)
[2021-12-22] MEDS: PANTOPRAZOLE 20 MG TABLET PO SCH (10:39)
[2021-12-22] MEDS: THIAMINE HCL 100 MG TABLET (FP) PO SCH (22:32)
[2021-12-23] MEDS ORDERED: MELATONIN 5 MG TABLETS PO ONE (00:47)
[2021-12-23] MEDS ORDERED: LORazepam 0.5 MG TABLET PO ONE (05:00)
[2021-12-23 08:51] VITALS: BP 130/85; PULSE 90; TEMP 97.1
[2021-12-23] MEDS: PRENATAL VITAMINS W/ FOLIC ACID TABLET (FP) PO SCH (09:47)
[2021-12-23] MEDS: PANTOPRAZOLE 20 MG TABLET PO SCH (09:47)
== END 2021-12-23 09:21 | disposition home or self-care (01) | DRG 897 ==
LOC: YASAS 18:14 → Y3N 21:24
PROVIDERS: ADMIT Allergy & Immunology; ATTEND Surgery
PROC: HZ2ZZZZ Detoxification Services for Substance Abuse Treatment (ICD-10-PCS; principal; 2021-12-21)
DX: F10.230 Alcohol dependence with withdrawal, uncomplicated (principal); F33.9 Major depressive disorder, recurrent, unspecified; F10.282 Alcohol dependence with alcohol-induced sleep disorder; F10.24 Alcohol dependence with alcohol-induced mood disorder; K21.9 Gastro-esophageal reflux disease without esophagitis; D64.9 Anemia, unspecified; H91.90 Unspecified hearing loss, unspecified ear; Z86.16 Personal history of COVID-19; Z56.0 Unemployment, unspecified; Z59.01 Sheltered homelessness
CPT/HCPCS: 81003; C9803-CS; Q0162; U0003; U0005

== ENCOUNTER 2024-05-05 13:31 | Emergency (ER) | payer OTHER ==
[2024-05-05 14:16] VITALS: RESP 19; TEMP 97.6; BMI 21.6
[2024-05-05] MEDS: SODIUM CHLORIDE 0.9% 500 ML INFUS.BAG IV ONE (16:56)
[2024-05-05 17:01] LABS: EOS % 2.5 % (0-4.5); HEMATOCRIT 37.5 % (32.4-45.2); HEMOGLOBIN 12.2 GM/dL (10.7-15.3); LYMPH % 36.5 % (8-40); MCHC 32.5 g/dl (32.0-36.0); MEAN PLT VOLUME 6.5 fl (7.5-11.1); MONO % 10.7 % (3.8-10.2); NEUT % 49.3 % (42.8-82.8); PLATELET COUNT 251 10^3/uL (134-434); RBC 4.36 M/mm3 (3.60-5.2); RDW 20.2 % (11.6-15.6); WHITE BLOOD COUNT 3.5 K/mm3 (4.0-10.0)
[2024-05-05 17:19] LABS: POTASSIUM 4.2 mmol/L (3.5-5.1)
[2024-05-05 17:22] LABS: CALCIUM 8.6 mg/dL (8.5-10.1)
[2024-05-05 17:23] LABS: ALBUMIN 3.6 g/dl (3.4-5.0); BLOOD UREA NITROGEN 11.6 mg/dL (7-18); MAGNESIUM 1.8 mg/dL (1.8-2.4)
[2024-05-05 17:26] LABS: CREATININE 0.7 mg/dL (0.55-1.3)
[2024-05-05 17:28] LABS: BILIRUBIN,TOTAL 0.4 mg/dL (0.2-1); TOT PROT 7.2 g/dl (6.4-8.2)
[2024-05-05] MEDS: diazePAM CARPU-JECT 10 MG/2 ML DISP.SYRIN IVPUSH ONE (18:37)
[2024-05-06 08:23] VITALS: BP 105/41; PULSE 77
== END 2024-05-05 18:48 | disposition home or self-care (01) ==
LOC: JER 13:31
DX: F10.129 Alcohol abuse with intoxication, unspecified (principal); Y90.9 Presence of alcohol in blood, level not specified
CPT/HCPCS: 36415; 80053; 82962; 83735; 84484; 85025; 93005; 93010; 99284-25